=== PATIENT | male | born 1950 | race Caucasian/White ===

== ENCOUNTER 2019-03-25 12:20 | Inpatient (IN) ==
[2019-03-25] MEDS ORDERED: NS 1,000 ML IV ONE (12:42)
[2019-03-25] MEDS ORDERED: HUMULIN R IV ONE (12:42)
[2019-03-25 13:33] LABS: BASO# 0.04 X1000 (0.0-0.2); BASO% 0.5 % (0.0-0.8); EOS# 0.17 X1000 (0.0-0.7); HEMATOCRIT 36.4 % (42.0-52.0); HEMOGLOBIN 11.5 g/dL (14.0-18.0); IMM GRAN# 0.16 X1000 (0.0-0.04); IMM GRAN% 1.9 % (0.0-0.5); LYMPH# 1.49 X1000 (1.2-3.4); MCH 30.8 PG (27-31); MCHC 31.6 g/dL (33-37); MCV 97.6 FL (81-99); MONO% 7.2 % (1.7-9.3); MPV 9.2 FL (7.4-10.4); NEUT# 5.84 X1000 (1.4-6.5); NEUT% 70.4 % (42.2-75.2); PLT 224 X1000 (130-400); RBC 3.73 XMIL (4.7-6.1); RDW 13.7 % (11.5-14.5)
--- NOTE | 2019-03-25 13:33 | Diag Imaging Result Doc PS360 ---
EXAM: CHEST-PORTABLE HISTORY: stroke like symptoms TECHNIQUE: Single view COMPARISON: 09/30/2013 FINDINGS: The lungs are well expanded. The heart is not enlarged. The vessels are not distended. There are no infiltrates. No effusion identified. Moderate atherosclerosis IMPRESSION: Negative exam. Electronically signed by Oswaldo Gonzalez 03/25/2019 1:31 PM
[2019-03-25 13:40] LABS: INR 0.84; PROTIME 11.6 Seconds (11.0-16.0)
[2019-03-25 13:41] LABS: PTT 20.2 Seconds (22.3-41.8)
--- NOTE | 2019-03-25 13:49 | Diag Imaging Result Doc PS360 ---
EXAM: CT HEAD W/O CONTRAST HISTORY: stroke like symptoms TECHNIQUE: CT head without intravenous contrast COMPARISON: 02/20/2017 FINDINGS: No parenchymal hemorrhage. No epidural or subdural hematoma. No subarachnoid hemorrhage. Large old right sided infarct with encephalomalacia similar to the prior exam. There are chronic microvascular ischemic changes with small old lacunar infarcts. No mass identified on this noncontrasted exam. Ventricular prominence similar to the prior exam. No sinus opacification. IMPRESSION: 1.No hemorrhage 2.Atrophy 3.Old infarcts with chronic microvascular ischemic changes This exam was performed using automated exposure control, adjustment of mA or kV according to patient size, and/or use of iterative reconstruction technique. Electronically signed by Oswaldo Gonzalez 03/25/2019 1:47 PM
[2019-03-25 13:57] LABS: ALB/GLOB RATIO 1.3; ALBUMIN 3.5 g/dL (3.5-5.0); CALCIUM 8.8 mg/dL (8.8-10.2); CREATININE 1.2 mg/dL (0.7-1.2); POTASSIUM 3.4 mmol/L (3.5-5.1); TOTAL BILIRUBIN 0.2 mg/dL (0.20-1.00); TOTAL PROTEIN 6.1 g/dL (6.3-8.3)
[2019-03-25] MEDS ORDERED: LASIX IV ONE (14:47)
--- NOTE | 2019-03-25 16:05 | PROVIDER DOCUMENTATION ---
This chart was entered by Madhavi Wong Scribe, acting as scribe for Lew Valdivia MD. HPI-General Adult - General Chief Complaint: Unresponsive Stated Complaint: possible DKA Time Seen by Provider: 03/25/19 12:39 Source: patient Allergies/Adverse Reactions: Patient Allergies Allergy/AdvReac Type Severity Reaction Status Date / Time metformin Allergy Mild DIARRHEA Verified 02/21/17 07:56 Home Medications: Home Medication List Medication Instructions Recorded Confirmed Last Taken Type Amlodipine Besylate 5 mg PO BID 12/22/12 02/20/17 02/20/17 08:00 History 5 MG Clonidine [Catapres] 0.3 mg PO BID 12/22/12 02/20/17 02/20/17 08:00 History 0.3 MG LISINOpril [Prinivil] 40 mg PO DAILY 12/22/12 02/20/17 02/20/17 08:00 History 40 MG Metoprolol Tartrate 50 mg PO BID 12/22/12 02/20/17 02/20/17 08:00 History 50 MG Pravastatin Sodium 40 mg PO HS 01/31/13 02/20/17 02/20/17 08:00 History 40 MG Buspirone HCl 2 tab PO BID 02/20/17 02/20/17 02/20/17 History Cholecalciferol (Vit D3) [Vitamin 2 tab PO DAILY 02/20/17 02/20/17 02/19/17 History D3] Duloxetine HCl 60 mg PO DAILY 02/20/17 02/20/17 02/20/17 History Hydroxyzine HCl 25 mg PO BID 02/20/17 02/20/17 02/20/17 History Metformin HCl [Metformin HCl ER] 1 tab PO DAILY 02/20/17 02/20/17 02/19/17 History Prazosin HCl 2 cap PO HS 02/20/17 02/20/17 02/19/17 History Potassium Chloride E.r. [Klor-Con] 40 meq PO BID #30 tab 02/23/17 Unknown Rx - History of Present Illness -Gen Adult Nature of Presenting Problems: Patient is a 68 y/o male presenting to the ED today c/o altered mental status. W jacqueline reports that shortly after lunch, patient became unresponsive and she called EMS. EMS states that upon arrival, patient was unresponsive and upon regaining alertness, became combative en route. Patient remains weak and lethargic on exam. reports that patient came home from rehab on Saturday after an inpatient admission at [facility] for kidney failure. Patient has a history of stroke. Denies all other signs/symptoms. Onset/Duration: reports: abrupt Timing: reports: improving Associated Symptoms: reports: weakness, other (decreased responsiveness) Similar Symptoms Previously?: No Recently seen or treated by another doctor?: Yes (admitted at [facility]) Review of Systems - Adult - REVIEW OF SYSTEMS - ADULT Constitutional: denies: chills, fever Eyes: reports: no symptoms reported Ears, Nose, Mouth & Throat: reports: no symptoms reported Cardiovascular: denies: chest pain Respiratory: denies: cough, shortness of breath Gastrointestinal: denies: abdominal pain, diarrhea, nausea, vomiting Genitourinary: reports: no symptoms reported Musculoskeletal: reports: no symptoms reported Integumentary: reports: no symptoms reported Neurological: reports: other (weakness and decreased responsiveness) Psychiatric: reports: no symptoms reported Endocrine: reports: no symptoms reported Hematologic/Lymphatic: reports: no symptoms reported Allergic/Immunologic: reports: no symptoms reported All Other Systems: Reviewed and Negative Past History - Adult - PAST MEDICAL HISTORY-ADULT Review of Records: reports: Old Records Reviewed, Nursing Assessment Review, Medications Reviewed, Social history reviewed & non-contributory. Major Childhood Illnesses: reports: denies history Cardiovascular: reports: CAD, HTN, hyperlipidemia Respiratory: reports: denies history Gastrointestinal: reports: denies history Obstetrical/Gynecological: reports: denies history Genitourinary: reports: denies history Musculoskeletal: reports: denies history, other Neurological: reports: CVA Psychiatric: reports: anxiety Endocrine/Immune: reports: Diabetes Other Conditions: reports: denies history - PRIOR SURGERIES/PROCEDURES Surgical/Procedure History: reports: reviewed, not pertinent - PRIOR HOSPITALIZATIONS Prior Hospitalizations: reports: none - IMMUNIZATION STATUS Childhood Immunizations: See Nurse Assessment Flu Vaccine: See Nurse Assessment - FAMILY HISTORY Family History: reviewed, not pertinent Physical Exam-General - PHYSICAL EXAM-ADULT Initial Vital Signs Reviewed: Yes - CONSTITUTIONAL General Appearance: no apparent distress, lethargic, slow to respond - EYES Eyes: PERRL/EOMI, pink conjunctivae - HEAD, EARS, NOSE, MOUTH & THROAT HENMT: normocephalic/atraumatic, other (dry mucous membranes) - NECK Neck: full range of motion, normal inspection - RESPIRATORY Respiratory: lungs clear, normal breath sounds, no respiratory distress, no accessory muscle use - CARDIOVASCULAR Cardiovascular: systolic murmur (1/6 best heard at apex), irregularly irregular (rate controlled), other (4+ edema in upper extremities and abdomen) - GASTROINTESTINAL (ABDOMEN) Abdominal Exam: distended (4+ edema) - LYMPHATIC Lymphatic: no adenopathy - MUSCULOSKELETAL Back Exam: normal inspection Extremity: normal range of motion, pedal edema (1+), other (ecchymosis and abrasion across left upper extremity; flexion contracture in left upper extremity) - SKIN Integumentary: normal color, normal turgor, warm/dry, abrasion(s) (and ecchymosis across left upper extremity) - NEUROLOGIC Neurologic: grossly normal, other (slurred speech) - PSYCHIATRIC Psych/Mental Status: other (slow to respond) Progress - PLAN OF CARE/RESULTS Progress/Plan/Lab Results: Vital Signs - 8 hr 03/25/19 12:49 Temperature 98.1 F Pulse Rate 74 Respiratory Rate 19 Blood Pressure 175/82 O2 Sat by Pulse Oximetry 96 Orders Category Date Time Status Cardiac Monitoring DIRECTED Care 03/25/19 12:41 Active Finger Stick Blood Sugar (ED) DIRECTED Care 03/25/19 12:41 Active Oxygen Therapy- ED Nursing DIRECTED Care 03/25/19 12:41 Active Saline Loc NOW Care 03/25/19 12:41 Active CHEST-PORTABLE [RAD] Stat Exams 03/25/19 12:[address] HEAD W/O CONTRAST [CT] Stat Exams 03/25/19 12:41 Ordered BLOOD CULTURE [BLDCUL] Stat Lab 03/25/19 12:42 Uncollected CBC WITH ELECTRONIC DIFF [HEME] Stat Lab 03/25/19 12:41 Uncollected COMPREHENSIVE METABOLIC PANEL [CHEM] Stat Lab 03/25/19 12:41 Uncollected INFLUENZA SCREEN A/B Stat Lab 03/25/19 12:43 Uncollected LACTATE, PLASMA [CHEM] Stat Lab 03/25/19 12:42 Uncollected PRO B-NATRIURETIC PEPTIDE Stat Lab 03/25/19 12:42 Uncollected PROTIME WITH INR [COAG] Stat Lab 03/25/19 12:41 Uncollected PTT [COAG] Stat Lab 03/25/19 12:41 Uncollected TROPONIN T HIGH SENSITIVITY Stat Lab 03/25/19 12:41 Uncollected URINALYSIS W/POSS RFLX CULT [URINALYSIS] Stat Lab 03/25/19 12:41 Uncollected URINE DRUG SCREEN Stat Lab 03/25/19 12:41 Uncollected 0.9% Sodium Chloride Inj [Ns] 1,000 ml Med 03/25/19 12:42 Active IV 999 mls/hr Insulin Human Regular [Humulin R] Med 03/25/19 12:42 Discontinued 5 unit IV NOW ONE EKG [EKG] Stat Ther 03/25/19 12:41 Ordered Result Diagrams: 03/25/19 13:05 03/25/19 13:05 - REASSESSMENT Reassessment #1 Time Reassessed: 16:00 Status: improving (Patient is better with IVF, uncomfortable with obs at home, states he is not back to himself yet.) - XRAY 1 XRAY Study: Chest Impression: See EMR Report (EXAM: CHEST-PORTABLE HISTORY: stroke like symptoms TECHNIQUE: Single view COMPARISON: 09/30/2013 FINDINGS: The lungs are well expanded. The heart is not enlarged. The vessels are not distended. There are no infiltrates. No effusion identified. Moderate atherosclerosis IMPRESSION: Negative exam. Electronically signed by Oswaldo Gonzalez 03/25/2019 1:31 PM 03/25/19 1331 Interpreting Physician: Oswaldo Gonzalez MD Dictated Date/Time: 03/25/19 1330 cc: Lew Valdivia MD; None,PCP) - CT/MRI 1 CT Study: Head Impression: See EMR Report (EXAM: CT HEAD W/O CONTRAST HISTORY: stroke like symptoms TECHNIQUE: CT head without intravenous contrast COMPARISON: 02/20/2017 FINDINGS: No parenchymal hemorrhage. No epidural or subdural hematoma. No subarachnoid hemorrhage. Large old right sided infarct with ence phalomalacia similar to the prior exam. There are chronic microvascular ischemic changes with small old lacunar infarcts. No mass identified on this noncontrasted exam. Ventricular prominence similar to the prior exam. No sinus opacification. IMPRESSION: 1.No hemorrhage 2.Atrophy 3.Old infarcts with chronic microvascular ischemic changes This exam was performed using automated exposure control, adjustment of mA or kV according to patient size, and/or use of iterative reconstruction technique. Electronically signed by Oswaldo Gonzalez 03/25/2019 1:47 PM 03/25/19 1347 Interpreting Physician: Oswaldo Gonzalez MD Dictated Date/Time: 03/25/19 1343 cc: Lew Valdivia MD; None,PCP) - CONSULTS/PCP/HOSPITALIST Notification #1 *Consult/PCP/Hospitalist*: JEANETH Ackerman hospitalist. Time Discussed: 16:05 Consult Disposition: Will see in ED, Admit Departure - Departure Date of Disposition Decision: 03/25/19 Time of Disposition Decision: 16:00 DIAGNOSIS: Syncope and collapse determined by examination, Type 2 diabetes mellitus with hyperglycemia, without long-term current use of insulin, Diastolic CHF, acute on chronic Disposition: ADMITTED INPATIENT 09 Certified Medical Emergency: Emergent Condition: Fair Referrals and Follow-Ups: None,PCP [Primary Care Provider] - - Critical Care Note This patient required my direct & personal management of CC.: No Attestation - Physician/ ELINOR Attestation Patient care was provided by Advanced Practice Provider:: No The physician spent face to face time with patient:: Yes Advanced Practice Provider documentation review:: Supervising physician onsite and consulted in the evaluation and care of this patient. The physician did have a face to face encounter with the patient. This chart was documented by the indicated scribe, (Madhavi Wong, Sean) and accurately reflects the services I performed and decisions made by me, Lew Valdivia MD, as attested by the provider's signature.
[2019-03-25 17:29] LABS: URINE SOURCE CLEAN CATCH
[2019-03-25 17:45] LABS: UR AMPHETAMINES QUAL NONE DETECTED (NONE DETECT); UR BARBITUATES QUAL NONE DETECTED (NONE DETECT); UR BENZODIAZEPIN QUAL NONE DETECTED (NONE DETECT); UR CANNABINOIDS QUAL NONE DETECTED (NONE DETECT); UR COCAINE QUAL NONE DETECTED (NONE DETECT); UR METHADONE QUAL NONE DETECTED (NONE DETECT); UR OPIATES QUAL NONE DETECTED (NONE DETECT); UR OXYCODONE QUAL NONE DETECTED (NONE DETECT); UR PCP QUAL NONE DETECTED (NONE DETECT)
[2019-03-25 17:51] LABS: BILIRUBIN URINE NEGATIVE (NEGATIVE); BLOOD URINE NEGATIVE (NEGATIVE); COLOR STRAW; GLUCOSE URINE NEGATIVE (NEGATIVE); KETONE URINE NEGATIVE (NEGATIVE); LEUKOCYTES URINE NEGATIVE (NEGATIVE); NITRITE URINE NEGATIVE (NEGATIVE); PH URINE 7.5; PROTEIN URINE NEGATIVE (NEGATIVE); SP GRAVITY URINE 1.006; TURBIDITY URINE CLEAR (CLEAR); UR EPITHELIAL CELLS <10 /HPF (<10); URINE BACTERIA NEGATIVE /HPF; URINE RBC <10 /HPF (<10); URINE WBC <10 /HPF (<10); UROBILINOGEN URINE NORMAL (NORMAL)
--- NOTE | 2019-03-25 18:46 | ED EKG INTERP ---
This chart was entered by Madhavi Wong Scribe, acting as scribe for Lew Valdivia MD. EKG Interpretation - EKG Time of EKG reading by physician:: 16:00 EKG Read and Signed by:: Lew Valdivia EKG Interpretation (*Must complete 3 of following elements*): Abnormal Rate: 74 Rhythm: Normal sinus rhythm with PACs ST Wave: non-specific ST changes Comments: no STEMI Attestation - Physician/ ELINRO Attestation Patient care was provided by Advanced Practice Provider:: No The physician spent face to face time with patient:: Yes Advanced Practice Provider documentation review:: Supervising physician onsite and consulted in the evaluation and care of this patient. The physician did have a face to face encounter with the patient. This chart was documented by the indicated scribe, (Madhavi Wong, Sean) and accurately reflects the services I performed and decisions made by , Lew Valdivia MD, as attested by the provider's signature.
--- NOTE | 2019-03-25 20:55 | HISTORY AND PHYSICAL ---
PRIMARY C[facility]: [facility] CHIEF COMPLAINT: Per the at bedside, he went out in his wheelchair. HISTORY OF PRESENT ILLNESS: Mr. Castillo is a 68-year-old male with a past medical history of CVA with residual left-sided weakness in 2012. He is wheelchair bound, coronary artery disease, hypertension, hyperlipidemia, chronic anxiety, diabetes, COPD. He was recently admitted to [facility] for kidney failure and then did a 21 day stent in rehab at [facility]. He just got out on Saturday. His reports today he was sitting up in his wheelchair. He requested something to eat. He started to eat. He started pointing and mumbling and then he just went out and slumped over in his wheelchair. She checked his blood sugar. It was measuring high. She give him his insulin. Recheck it and was 200. She took his blood pressure. It was 157/78. The son called EMS. He started coming around in the ambulance. Per ED report, he appeared to be somewhat combative and altered in route with EMS and on arrival to the ED, he was weak and lethargic. Currently, he does not know why he was brought to the hospital. He only knows his name and date of . He thinks his stroke recently happened. He believes that the President is still Demetrio Pinto, but he does know he is in the hospital and that he lives in [place] with his . His feels that he is starting to come around. He is just still slow and not quite back to his norm. We will admit him and work him up for syncopal episode vs seizure activity. PAST MEDICAL HISTORY: Per HPI. REVIEW OF SYSTEMS: Completely negative except for those mentioned in HPI. SOCIAL HISTORY: He lives with his . He quit smoking over a month ago. No alcohol or illicit drug use. He is wheelchair bound. He cannot use his left upper extremity. He is able to use his left lower extremity some, but he does not walk. FAMILY HISTORY: Noncontributory. MEDICATIONS: Home medications are being compiled. ALLERGIES: To metformin. PHYSICAL EXAMINATION: VITAL SIGNS: Temperature is 98.5 degrees, heart rate 85, respirations 15, blood pressure 148/109, O2 is 100% on room air. GENERAL: Mr. Castillo is a 68-year-old elderly gentleman who is sitting up in the bed and in no acute distress. HEENT: Atraumatic, normocephalic. PERRL. Mucous membranes are dry. NECK: Supple. Trachea midline. CARDIOVASCULAR: S1, S2 appreciated. Positive for murmur. GI: Soft, slightly distended, nontender. Positive bowel sounds in 4 quadrants. EXTREMITIES: Lower extremities 1+ pedal edema bilaterally. Upper extremities somewhat edematous. He does have a contractured left upper extremity secondary to his stroke with some various stages of bruising noted. NEUROLOGIC: He does have some slurred speech. Per his , it is residual. He is kind of slow to respond. His said that is not quite his normal, but he is coming back around to his normal. He does know his name. He knows his date of . He knows he is in the hospital. He knows he lives in [place]. He knows his is there. However, he believes the current president is Demetrio Pinto and he believes that he just recently had a stroke, although, it was back in 2012. IMAGING: Head CT: No hemorrhage, atrophy. Old infarcts with chronic microvascular ischemic changes. Chest x-ray: Negative exam. LABORATORY DATA: White count 8, hemoglobin and hematocrit 11 and 36, platelet count is 224,000. Sodium 142, potassium 3.4, BUN 15, creatinine 1.2 blood glucose is 180. Troponin 41. ProBNP is 2535. Urinalysis is negative. Toxicology screen is negative. ASSESSMENT AND PLAN: 1. Syncopal episode vs. Seizure. The patient was in his wheelchair. This was witnessed by the and the son. We will check carotids and echocardiogram in the a.m.Brain MRI and EEG. 2. Cerebrovascular accident history with residual left-sided weakness. The patient is wheelchair bound. He does have some slurred speech, but not as prominent as it is today. 3. Hypertension. We will continue home medications when verified. 4. reports renal failure at [facility] back in February. Kidney function is stable at this time. 5. Diabetes mellitus with hyperglycemia. We will place him on sliding scale with pattern blood sugars. 6. Elevated proBNP. does not report any congestive heart failure history. She reports he is not on any diuretics at home. He was given a dose of IV Lasix in the emergency department. We will recheck his proBNP in the a.m. His chest x-ray does not show any pulmonary edema. 7. Chronic obstructive pulmonary disease, not in exacerbation. 8. Known coronary artery disease, denying any chest pain. 9. Hypertension. We will continue home medications when reconciled. 10. Chronic anxiety. 11. Further recommendation to follow physician evaluation, laboratory and diagnostic data. Dictated by JEANETH Cummings for Ian Juarez MD cc: Ian Juarez MD MTD
--- NOTE | 2019-03-25 22:07 | HISTORY AND PHYSICAL ---
ADDENDUM: I have seen and examined Mr. Castillo today. Mr. Castillo is dysarthric from a previous stroke. He is really not able to give any history. The granddaughter who was at the bedside, was not at the house at the time of the encounter. However, she said she was told that Mr. Castillo was sitting in his wheelchair late this afternoon and started pointing at something, but I am not sure if he was visually hallucinating, and then became lethargic, started just mumbling some words, and then he just became unconscious. They started calling his name, trying to get his attention, but he was completely unresponsive. There was no mention of any tonic- clonic seizure activity. He did not lose his bowel or fecal tone. However, I am told that the eyes kind of rolled over. He did not gain consciousness until in the ambulance which took about 10 minutes, and I understand that in the ambulance when he regained consciousness, he was a bit agitated and did not know what was going on. In the emergency room, he was found to be slightly hypertensive. His physical exam is positive for being slightly dysarthric. There is a left-sided hemiparesis, otherwise no other major findings. I have reviewed his chest x-ray, which did not show any abnormality. CT scan of the head shows no hemorrhage, atrophy, and there is old infarct with chronic microvascular ischemic changes. More specifically, there is a large old right-sided infarct with encephalomalacia. ASSESSMENT: 1. Loss of consciousness with protracted period of postictal before sensory recovery with some abnormal behavior after the postictal state, all concerning for possibility of seizure episode. The patient has a static lesion in the brain which could potentially be the focus for an epileptic discharge. This seems to be his first episode, so I have not started him on any antiepileptic medications yet. I will get an MRI of the brain and get an EEG, and get Neurology to evaluate him before we commit him to any antiepileptic medications. 2. History of cerebrovascular accident with left-sided hemiparesis noted. 3. Wheelchair bound for mobility. 4. Hypertension. PLAN: In general, Mr. Castillo will be admitted to the medical floor, neurologic checks. Continue with telemetry monitoring. We will restart him back on his home medications. We will get an MRI of the brain with and without contrast tomorrow. We will get an EEG and get Neurology to evaluate him. Please refer to the details of the history and physical that has been dictated by the FILM PAINTER in the chart. I have discussed the plan with her. cc: Ian Juarez MD
[2019-03-25] MEDS ORDERED: DUONEB (A & A) INH PRN (22:59)
[2019-03-25] MEDS ORDERED: TYLENOL PO PRN (22:59)
[2019-03-25] MEDS ORDERED: ZOFRAN IV PRN (22:59)
[2019-03-26] MEDS ORDERED: LANOXIN IV ONE (01:25)
[2019-03-26] MEDS ORDERED: LOPRESSOR IV ONE (01:26)
[2019-03-26] MEDS: HUMALOG SUBQ SCH ×5 (01:58→21:58)
--- NOTE | 2019-03-26 07:45 | EKG Report ---
Test Performed on : 03/26/2019 00:55:00 AM Test Reason : elevated HR Blood Pressure : / mmHG Vent. Rate : 121 BPM Atrial Rate : 340 BPM P-R Int : 000 ms QRS Dur : 086 ms QT Int : 310 ms P-R-T Axes : 000 -25 119 degrees QTc Int : 440 ms Atrial fibrillation. with rapid ventricular response. Moderate voltage criteria for LVH, may be normal variant ST & T wave abnormality, consider lateral ischemia Abnormal ECG When compared with ECG of 20-FEB-2017 11:28, Atrial fibrillation. has replaced Sinus rhythm. Vent. rate has increased BY [address] less depressed in Lateral leads T wave inversion no longer evident in Inferior leads T wave inversion less evident in Anterolateral leads Confirmed by Jacob CUI, MSaundra Lynn ([id number]) on 03/26/2019 8:10:45 AM
[2019-03-26 08:17] LABS: BASO# 0.02 X1000 (0.0-0.2); BASO% 0.2 % (0.0-0.8); EOS# 0.05 X1000 (0.0-0.7); EOS% 0.5 % (0.0-10.0); HEMATOCRIT 39.8 % (42.0-52.0); HEMOGLOBIN 12.6 g/dL (14.0-18.0); IMM GRAN# 0.11 X1000 (0.0-0.04); IMM GRAN% 1.2 % (0.0-0.5); LYMPH# 1.17 X1000 (1.2-3.4); LYMPH% 12.4 % (20.5-51.1); MCHC 31.7 g/dL (33-37); MCV 97.8 FL (81-99); MONO# 0.67 X1000 (0.11-0.59); MONO% 7.1 % (1.7-9.3); NEUT# 7.44 X1000 (1.4-6.5); NEUT% 78.6 % (42.2-75.2); PLT 238 X1000 (130-400); RBC 4.07 XMIL (4.7-6.1); RDW 13.9 % (11.5-14.5); WBC 9.46 X1000 (4.8-10.8)
[2019-03-26 09:03] LABS: AGAP 18; ALBUMIN 3.9 g/dL (3.5-5.0); ALKALINE PHOSPHATASE 66 U/L (32-122); BUN 10 mg/dL (8-22); CALCIUM 8.8 mg/dL (8.8-10.2); CHLORIDE 98 mmol/L (98-107); COSMO 295; ESTIMATED GFR > 60; GLUCOSE 188 mg/dL (70-104); GOT 15 U/L (10-34); GPT 29 U/L (10-44); POTASSIUM 2.7 mmol/L (3.5-5.1); SODIUM 146 mmol/L (136-145); TCO2 30 mmol/L (25-35); TOTAL BILIRUBIN 0.44 mg/dL (0.20-1.00); TOTAL PROTEIN 5.9 g/dL (6.3-8.3)
[2019-03-26 09:24] LABS: HEMOGLOBIN A1C 6.7 % (4.8-6.0)
[2019-03-26] MEDS ORDERED: ATIVAN IV ONE (09:31)
--- NOTE | 2019-03-26 13:52 | Diag Imaging Result Doc PS360 ---
EXAM: MRI BRAIN W/WO CONTRAST INDICATION: seizures COMPARISON: CT head dated 03/25/2019. No prior brain MRI is available for comparison. FINDINGS: There is a small acute infarct involving the thalamus on the left that extends to the medial temporal lobe adjacent to the temporal horn of the lateral ventricle. No other acute infarcts are appreciated. There is extensive encephalomalacia in the right MCA distribution from an old infarct, stable. There is associated vacuo dilatation of the right lateral ventricle. There is also diffuse brain atrophy and there is fairly extensive periventricular white matter microangiopathy, stable. There is atrophy of the right cerebral peduncle indicating wallerian degeneration. There is no discrete intracranial mass, mass effect, or intracranial hemorrhage. There is no evidence of abnormal intracranial enhancement. The surrounding soft tissues and bony structures are essentially unremarkable. IMPRESSION: 1.Small acute infarct involving the thalamus on the left extending to the medial temporal lobe. 2.Extensive right MCA distribution encephalomalacia, brain atrophy, and advanced white matter microangiopathy. Electronically signed by Edward Wharton 03/26/2019 1:50 PM
--- NOTE | 2019-03-26 15:02 | EKG Report ---
Test Performed on : 03/26/2019 2:45:13 PM Test Reason : Elevated heart rate Blood Pressure : / mmHG Vent. Rate : 129 BPM Atrial Rate : 138 BPM P-R Int : 000 ms QRS Dur : 082 ms QT Int : 304 ms P-R-T Axes : 000 -29 129 degrees QTc Int : 445 ms Critical Test Result: AV Block Sinus tachycardia. with 2nd degree AV block (Mobitz I). Left ventricular hypertrophy with repolarization abnormality Abnormal ECG When compared with ECG of 26-MAR-2019 00:55, Sinus rhythm. has replaced Atrial fibrillation. ST less depressed in Anterior leads Confirmed by Jacob CUI, Zeke Lynn ([id number]) on 03/27/2019 4:35:06 PM
--- NOTE | 2019-03-26 15:11 | NEUROLOGY CONSULTATION ---
DATE: 03/26/2019 Mr. Castillo is 68 years old and he had recent episode raising question of seizure. History is taken solely from the hospital record on admission. I phoned all of the numbers available in the chart. One of these is disconnected ([phone]) and I got a busy signal consistently at [phone], and got machine answer but not offer to leave a voicemail at [phone]. By report, Mr. Castillo had abrupt change while seated, reported to begin pointing (chart does not report which direction or which arm used) and mumbling, and then he slumped and was either poorly responsive or unresponsive for a short time period. Ambulance was summoned. He was more responsive by the time ambulance arrived. By report, he became combative. By report, he was not able to answer all questions correctly on presentation here including naming the President as Mr. Pinto. I do not have a firsthand history of this incident. I have reviewed the old records showing there is possible previous psychiatry history and possible previous bipolar disorder diagnosis. He has previous clonazepam use. PDMP does not show any recent benzodiazepine prescriptions filled. Urine drug screen on presentation yesterday afternoon was all negative. There is report of prior stroke causing left-sided weakness with persistent significant left hemiparesis. By report, he has required wheelchair for mobility since then. This stroke must have occurred before 2013 since it is mentioned in the earliest notes we have in this computer system. On 12/22/2012, noncontrast CT of the head is reported to show right temporal lobe atrophy. That finding has been unchanged on subsequent scans including noncontrast CT of the head done on this admission. Lab work this admission includes chemistry showing blood sugars 140s-240s, A1c 6.7%, sodium 142 and then 146, proBNP 2535. There is anemia with normal platelet and WBC counts, and normal MCV. He has been afebrile here. Heart rate has ranged 70s-130s. Systolic blood pressure has ranged 140s-190s. The home medication list as recorded on admission includes amlodipine, hydroxyzine p.r.n., lisinopril, metoprolol, spironolactone, pravastatin, glipizide, Trulicity, duloxetine, tamsulosin. On exam, Mr. Castillo is supine, awake, alert, mostly attentive to my questions. He answered the questions regarding orientation mostly correctly. Speech is a little bit dysarthric but easily understood (this may be baseline according to chart). He did well with brief bedside language testing. He used his right arm purposefully and demonstrated good power in the right arm. He raised his left leg to command. I can overcome the left iliopsoas, grading 4/5. Strength is good in the right leg. He did not use his left arm purposefully consistently, but did raise it at times semi- purposefully. There is contraction at the left MCP joints. He did not identify pinprick over the left palm and did identify pinprick quickly over the right palm. I did not test his gait. He has apparent conjugate left gaze preference but he did look to the right on command. Facial motility is slightly diminished on the left. Tongue is midline. Palate is midline. He can hear. I cannot demonstrate definite vision. He did not count fingers. He sometimes would confabulate and report seeing things when asked but he did not disagree when I told him he might be blind. Head shows no evidence of recent trauma. Neck is supple without meningismus. IMPRESSION: 1. Recent episode raising question of seizure. Reported pointing suggests focal onset. If this was seizure, explanation for seizure is not certain. Seizure could be related to prior stroke, but we would have expected onset many years before now and I don't have history of previous episodes of altered awareness or of julio seizure. I do not see anything in his history or workup here to suggest a toxic or metabolic reason for recent focal seizure. 2. Apparent left gaze. Right hemisphere seizure or destructive left hemisphere lesion could be associated with his apparent left gaze preference. Left gaze due to seizure should not persist after seizure and we would expect either right gaze preference or no gaze preference postictally with right hemisphere seizure focus. 3. He has a prior history of significant clonazepam use but I believe that was stopped years ago. If he has had recent benzodiazepine, benzodiazepine withdrawal might account for some agitation noted earlier and for withdrawal seizure. 4. Left hemiparesis. I do not know the degree of his baseline left hemiparesis, but I believe this is old and I believe deficit is stable to the best of my ability to compare current findings with those recorded on prior notes in the computer. There is obvious old right hemisphere encephalomalacia to correlate with that clinical finding. 5. Chart indicates there is a prior psychiatry history. I do not know if that is playing a role now, or not. 6. He may be blind. I do not know if this is old or new, complete or not. Some of the difficulty with vision testing may be related to his trouble maintaining attention. I will see if there is more history available when family is present. No urgent suggestions. I agree with plans for workup but we may need to proceed slowly and as tolerated since he has been restless and will require sedation to manage MRI and/or EEG. Thanks for asking neurology to see Mr. Castillo. cc: Shanice Blankenship III, MD MTDD
--- NOTE | 2019-03-26 15:47 | PROGRESS NOTE ---
DATE: 03/26/2019 SUBJECTIVE: I have seen and examined Mr. Castillo today. He refers to be doing fair, but I think he still remains quite confused. OBJECTIVE: Vital signs: Blood pressure is 156/102, pulse of 130, respirations 22, temperature is 100.4. General: Mr. Castillo is a 68-year-old gentleman. He is in bed, no distress. Mucosa is pink and moist. Anicteric. Acyanotic. Neck: Supple. Chest: Air entry is bilaterally reduced. A few rhonchi and wheezing bilateral. Cardiovascular: Tachycardic but seems to be fairly regular. Gastrointestinal: Abdomen is soft, distended. Bowel sounds present. Extremities: No pedal edema. Central Nervous System: Patient is awake, has a very dysarthric speech and has a dense left-sided hemiparesis. LABORATORY: Flu was negative. Blood cultures are still pending WBC is 9.46, hemoglobin is 12.6, platelet count of 238. Chemistry is also reviewed. A1c is 6.7. ProBNP was 4371. DIAGNOSTIC STUDIES: A chest x-ray yesterday was unremarkable. An MRI this morning shows a small acute infarct involving the thalamus on the left, extending to the medial temporal lobe. There is an extensive right MCA distribution encephalomalacia. ASSESSMENT: 1. Loss of consciousness with protracted period of postictal state, concerning for seizures. 2. Acute left thalamic stroke. The patient does not seems to have any motor deficit on the right side of his body. 3. Large right middle cerebral artery territory previous stroke with encephalomalacia resulting in a dense left-sided hemiparesis. 4. Wheelchair-bound for mobility. 5. Hypertension. 6. Diabetes mellitus with presenting A1c of 6.7. Continue with insulin regimen. Patient was on glipizide at home. 7. Uncontrolled hypertension. We will continue to hold off on antihypertensives because of the acute stroke. 8. Clinical volume depletion. Patient will be started on gentle fluid hydration. Mr. Castillo is also pending Neurology evaluation and possible EEG today. cc: MD ALEYDA Clark
[2019-03-26] MEDS: 1/2 NS + KCL 20 MEQ 1,000 ML IV SCH (16:33)
[2019-03-26] MEDS ORDERED: LOPRESSOR PO ONE (17:41)
--- NOTE | 2019-03-26 19:17 | ECHO REPORT ---
ORDER DATE: 03/26/2019 MEASUREMENTS: Septal thickness 1.9, left ventricular internal diastole 3.6, posterior wall thickness 1.4, left ventricular internal diameter in systole 2.2, aortic root 3.4, left atrium 3.6. SUMMARY: 1. Fair quality study. parasternal windows with difficult apical windows. 2. Aortic valve is trileaflet and opens normally on 2-dimensional images. The peak gradient across aortic valve is approximately 10 mmHg. Mitral, tricuspid, and pulmonic valves are without evidence of structural abnormality. Aortic root is normal in size. 3. Normal left ventricular chamber size with moderate concentric left hypertrophy is demonstrated. Estimated left ejection fraction appears to be at least 70%. No regional wall abnormalities evident. Left atrium, right atrium, right ventricle are normal in size with grossly preserved right ventricular systolic function. 4. No pericardial effusion. 5. Appearance of inferior vena cava suggests normal central venous pressure. cc: MD Ian Acosta MD
[2019-03-27] MEDS: 1/2 NS + KCL 20 MEQ 1,000 ML IV SCH (07:01)
[2019-03-27] MEDS: HUMALOG SUBQ SCH ×4 (07:02→22:03)
[2019-03-27 08:14] LABS: HEMATOCRIT 39.8 % (42.0-52.0); HEMOGLOBIN 12.5 g/dL (14.0-18.0); MCH 30.9 PG (27-31); MCHC 31.4 g/dL (33-37); MCV 98.3 FL (81-99); MPV 8.5 FL (7.4-10.4); RBC 4.05 XMIL (4.7-6.1); WBC 11.23 X1000 (4.8-10.8)
[2019-03-27 08:43] LABS: AGAP 16; ALBUMIN 3.8 g/dL (3.5-5.0); BUN 10 mg/dL (8-22); CHLORIDE 101 mmol/L (98-107); COSMO 293; ESTIMATED GFR > 60; GLUCOSE 163 mg/dL (70-104); PHOSPHORUS 2.4 mg/dL (2.7-4.5); POTASSIUM 2.6 mmol/L (3.5-5.1); SODIUM 146 mmol/L (136-145); TCO2 29 mmol/L (25-35)
[2019-03-27] MEDS ORDERED: LOPRESSOR PO SCH (09:00)
[2019-03-27] MEDS: D5W + KCL 20 MEQ 1,000 ML IV SCH (13:30)
[2019-03-27] MEDS: FLOMAX PO SCH (13:31)
[2019-03-27] MEDS: NORVASC PO SCH (13:31)
[2019-03-27] MEDS: PRINIVIL PO SCH (13:31)
[2019-03-27] MEDS: CYMBALTA PO SCH (13:32)
[2019-03-27] MEDS: NEUTRA-PHOS PO SCH ×2 (17:58→22:03)
--- NOTE | 2019-03-27 19:26 | NEUROLOGY PROGRESS NOTE ---
DATE: 03/27/2019 SUBJECTIVE: Mr. Castillo had a fairly uneventful night. is present today. I was not able to reach her by phone yesterday. Today, she reports Mr. Castillo was in his wheelchair and seemed awake and alert. Suddenly, he raised his right arm, pointed with the right index finger, mostly pointed straight ahead, and moved the right arm a little bit without jerking movement. He did not respond to questions and to family calling his name. Eyes were open, but he did not seem to see. Following that, he seemed to be in deep sleep for about half an hour. was present during the ambulance ride and reports as he became alert, he was very restless, moving the right limbs, not following commands, not communicating. He seemed disoriented over the next hour or 2 and then gradually seemed recovered. reports significant forgetfulness at baseline, possibly present since his initial nondominant right hemisphere stroke in December, with persistent left hemiparesis. She is not aware of cholinesterase inhibitor trial. She is not aware of any other stroke. There is not a history of recent head injury. reports that while he was hospitalized in [place] recently, he had an episode of hypoglycemia with blood sugar in the 30s, and he was poorly responsive then and agitated during recovery after that episode, but she did not see behavior similar to what she saw yesterday. reports no prior seizure diagnosis. reports he has chronic poor vision attributed to cataracts, but he has been able to see well enough to get himself around home in the wheelchair. OBJECTIVE: On my exam today, he is awake, alert, attentive at times. He answered questions appropriately. Speech is improved since yesterday. Language function continues intact on brief bedside testing. I did not test his cognitive function. He can definitely count fingers today, and I could not appreciate that for certain yesterday. He counted fingers in the left and right visual anderson with each eye and was more consistent with the left eye, which reports is the eye that has had impaired vision due to cataract. IMPRESSION/PLAN: 1. Acute dominant subcortical left hemisphere infarction involving the thalamus and adjacent temporal region. I do not find hemiparesis or definite language disturbance. He may have had transient vision loss. 2. Behavior prior to admission is consistent with focal seizure, probable left hemisphere focus, in light of the right arm movement. We will plan EEG if he can tolerate that today. I would not start medicine for seizure control unless he has a more definite seizure clinically, or there are EEG findings. 3. Long-standing forgetfulness. We might consider a cholinesterase inhibitor trial electively, not urgent. If there is baseline cognitive impairment, as reports, then any toxic or metabolic state may be associated with more prominent encephalopathy features. 4. I do not have any urgent suggestions today. Further plans will depend on his clinical course and EEG report. Thanks for asking Neurology to see Mr. Castillo. cc: Shanice Blankenship III, MD MTDD
--- NOTE | 2019-03-27 19:53 | PROGRESS NOTE ---
DATE: 03/27/2019 SUBJECTIVE: This morning, Mr. Castillo refers to be doing much better. He looks more awake, more alert, and is more conversational. OBJECTIVE: vital signs: Blood pressure is 159/87, pulse of 110, respirations 20, temperature is 99.3 degrees. General: Mr. Castillo is a 68-year-old, elderly gentleman. He was in bed, no distress. Mucosa is pink and moist. Anicteric, acyanotic. Neck: Supple. Chest: Good air entry bilaterally. There are no crepitations, no rhonchi. Cardiovascular: Regular rate and rhythm. There are no murmurs, no rubs, no gallops. Gastrointestinal: Abdomen is soft. Bowel sounds present. Extremities: No pedal edema. Central nervous system: Patient is awake, alert. He is able to articulate better today. Still has a dense left-sided hemiparesis. LABORATORY DATA: WBC 11.23. Potassium is 2.6, phosphorus of 2.4. ProBNP continues to be elevated. ASSESSMENT/PLAN: 1. Loss of consciousness with protracted period of postictal state concerning for seizures. The patient has been evaluated by Neurology. Unfortunately, an EEG could not be done because patient was agitated. 2. Acute left thalamic stroke. The patient does not seem to have any motor deficit on the right side of his body. 3. Large right middle cerebral territory previous stroke with encephalomalacia resulting in a dense left-sided hemiparesis. The patient is wheelchair bound because of that. 4. Diabetes mellitus. Presenting A1c of 6.7. 5. Uncontrolled hypertension. We are going to start the patient back on his medication. 6. Sinus tachycardia with premature ventricular contractions. Patient has been started back on his metoprolol. 7. Clinical volume depletion. Improved. 8. Electrolyte abnormality including hypokalemia and hypophosphatemia. We will replace this. cc: Ian Juarez MD
[2019-03-27] MEDS ORDERED: SEROQUEL PO SCH (21:00)
[2019-03-27] MEDS ORDERED: PRAVACHOL PO SCH (21:00)
--- NOTE | 2019-03-27 22:01 | Carotid Study ---
DATE: 03/26/2019 STUDIO SALES ASSOCIATE: Patton. REQUESTING PHYSICIAN: Dr. Pérez. INDICATION: Syncope. History of atrial fibrillation. Food And Beverage Manager noted patient uncooperative with exam, making a somewhat limited exam. FINDINGS: Bilateral carotid artery systems were visualized. In the bilateral carotid arteries, there were broad-based atherosclerotic changes starting in the bulb and extending proximally in the internal carotid arteries. This does seem to cause an elevation of velocities that would correlate to a 60% to 79% stenosis, although the morphology of lesions does not seem to be that severe. IMPRESSION: Severe atherosclerotic changes noted in bilateral carotid arteries with antegrade vertebrals. cc: Sabina Ayala MD
[2019-03-27] MEDS: LOPRESSOR PO SCH (22:03)
[2019-03-28] MEDS: D5W + KCL 20 MEQ 1,000 ML IV SCH (02:38)
[2019-03-28] MEDS: HUMALOG SUBQ SCH ×2 (06:12→11:44)
[2019-03-28 08:31] LABS: HEMATOCRIT 36.9 % (42.0-52.0); HEMOGLOBIN 11.7 g/dL (14.0-18.0); MCH 31.5 PG (27-31); MCHC 31.7 g/dL (33-37); MCV 99.5 FL (81-99); MPV 8.8 FL (7.4-10.4); RBC 3.71 XMIL (4.7-6.1); RDW 13.7 % (11.5-14.5); WBC 10.16 X1000 (4.8-10.8)
[2019-03-28 08:47] LABS: AGAP 14; ALBUMIN 3.4 g/dL (3.5-5.0); BUN 9 mg/dL (8-22); CALCIUM 8.8 mg/dL (8.8-10.2); CHLORIDE 100 mmol/L (98-107); COSMO 290; ESTIMATED GFR > 60; GLUCOSE 221 mg/dL (70-104); PHOSPHORUS 2.4 mg/dL (2.7-4.5); SODIUM 143 mmol/L (136-145); TCO2 29 mmol/L (25-35)
[2019-03-28] MEDS: LOPRESSOR PO SCH (09:35)
[2019-03-28] MEDS: NORVASC PO SCH (09:35)
[2019-03-28] MEDS: PRINIVIL PO SCH (09:35)
[2019-03-28] MEDS: FLOMAX PO SCH (09:36)
[2019-03-28] MEDS: NEUTRA-PHOS PO SCH ×2 (09:36→13:46)
[2019-03-28] MEDS: CYMBALTA PO SCH (09:36)
[2019-03-28] MEDS ORDERED: KLOR-CON PO ONE (12:11)
[2019-03-28 12:42] VITALS: BP 150/71
--- NOTE | 2019-03-29 12:16 | DISCHARGE SUMMARY ---
ADMISSION DATE: 03/25/2019 DISCHARGE DATE: 03/28/2019 DISPOSITION: Home. FOLLOWUP: 1. Dr. Amador. 2. Dr. Blankenship. CONSULTATIONS DURING THIS ADMISSION: Neurology was consulted. The patient was seen by Dr. Blankenship. INVASIVE PROCEDURES DONE DURING THIS ADMISSION: None. IMAGING STUDIES OF SIGNIFICANCE: 1. Chest x-ray was negative. 2. CT scan of the head showed no hemorrhage. Atrophy and old infarcts with chronic microvascular changes. 3. MRI of the brain showed a small acute infarct involving the thalamus on the left, extending to the medial temporal lobe. There is an extensive right MCA distribution encephalomalacia, brain atrophy, and advanced mild white matter microangiopathy. 4. Carotid ultrasound did show severe atherosclerotic changes in bilateral carotid arteries with anterograde vertebrals. ADMISSION DIAGNOSES: 1. Syncope versus seizures. 2. Cerebrovascular accident with left-sided hemiparesis. 3. Hypertension. 4. Diabetes mellitus. DISCHARGE DIAGNOSES: 1. Loss of consciousness with protracted period of postictal state, associated with behaviors that were concerning for focal seizures, probably a left hemisphere focus. An electroencephalogram was ordered. However, the patient was not stable enough to undergo this. He will follow up with Dr. Blankenship for outpatient further evaluation and management. 2. Acute left thalamic stroke noted on MRI. The patient does not have any focal deficit on the right side. 3. Previous large right middle cerebral territory infarct with encephalomalacia resulting in a left-sided hemiparesis. 4. Diabetes mellitus with presenting A1c of 6.7. 5. Hypertension, controlled. 6. Sinus tachycardia with premature ventricular contractions. 7. Clinical volume depletion, improved. 8. Electrolyte abnormality, including hypokalemia and hypophosphatemia, replaced. 9. Bilateral carotid stenosis, not significant enough. However, patient advised to follow up with Vascular Surgery, and he is on aspirin and statin. DISCHARGE MEDICATIONS: 1. Amlodipine 10 mg p.o. daily. 2. Duloxetine 60 mg p.o. every a.m. 3. Glipizide 5 mg p.o. daily. 4. Metoprolol 100 mg b.i.d. 5. Spironolactone 25 mg b.i.d. 6. Tamsulosin 0.4 p.o. daily. 7. Lisinopril 40 mg p.o. daily. 8. Aspirin 325 mg p.o. daily. 9. Seroquel 12.5 p.o. at bedtime. 10. Pravastatin 40 mg p.o. daily. PRESENTING COMPLAINT: Abnormal behavior and loss of consciousness. HISTORY OF PRESENTING COMPLAINT: Mr. Castillo is a 68-year-old, elderly, gentleman, who has a history of severe COPD, diabetes, anxiety, was brought to the emergency department because he started having some abnormal behavior, not coherent speech, and then he just blacked out, which lasted for approximately about 10 minutes. The patient woke up on the way to the hospital in the ambulance. He was a little bit belligerent. Upon presentation, he was evaluated. Initially, we thought he probably might have seizures, so he was admitted to the medical floor under neurologic checks. HOSPITAL COURSE: Mr. Castillo was admitted to the medical floor. He was started on medication for control of all his comorbidities. He was neurology checked every 4 hours, and Neurology was consulted. The patient was seen by Dr. Blankenship. Mr. Castillo had an MRI, which was done the following day of admission, which showed a left subcortical infarct, but did not have any neurological deficit. Mr. Castillo also was ordered to do an EEG. Unfortunately, he was not still enough to undergo the procedure. During the hospital course, however, he did not have any seizures witnessed. However, Mr. Castillo does have sufficient chronic lesions in the brain that could have potentially caused any focal seizures. The patient was not started on any antiseizure medication. His carotid studies also revealed remarkable stenosis of about 60% to 70%. He is on pravastatin. We have added aspirin, and he has been advised to follow up with his primary care and Vascular Surgery. Today, Mr. Castillo is fairly stable. He denies any new complaints. He has been evaluated by Physical Therapy, which documented that the patient, at baseline, did not need any aggressive physical therapy because he is wheelchair bound. We think he is fairly stable to be discharged today. All the discharge instructions were discussed with him. He voiced understanding. I had already notified the last night that Mr. Castillo will potentially be discharged today if he remained stable. TIME SPENT: Time spent for discharge was 38 minutes. cc: MD Jc Clark MD Eston G. Norwood III, MD
== END 2019-03-28 14:23 | disposition home or self-care (01) | DRG 100 ==
LOC: SUPCPDRO → ED 12:20 → EDIPHOLD 18:22 → SUATTDRO 18:22 → 3N 20:46
PROVIDERS: ATTEND Internal Medicine